=== PATIENT | female | born 1960 | race Hispanic/Latino ===

== ENCOUNTER 2019-02-26 11:43 | Emergency (ER) | payer MEDICARE ==
[~2019-02-26 11:43] MED LIST: NAPR-1023 PO; TRAM50TA4 PO
== END 2019-02-26 12:24 | disposition home or self-care (01) ==
LOC: EDH 11:43
DX: G89.29 Other chronic pain (principal); M54.5 Low back pain; M19.90 Unspecified osteoarthritis, unspecified site; Z88.8 Allergy status to other drugs, medicaments and biological substances; Z90.710 Acquired absence of both cervix and uterus; Z90.49 Acquired absence of other specified parts of digestive tract; Z98.890 Other specified postprocedural states
CPT/HCPCS: 99281

== ENCOUNTER 2022-03-29 23:19 | Emergency (ER) | payer MEDICARE, OTHER ==
[~2022-03-29] VITALS: Ht 154.9 cm; Wt 90.7 kg
[2022-03-30] MEDS ORDERED: DiphenhydrAMINE HCL 50 MG/ML VIAL IV ONE (00:30)
[2022-03-30] MEDS ORDERED: KETOROLAC 15MG/ML VIAL (15MG/ML) IV ONE (00:30)
[2022-03-30] MEDS ORDERED: ACETAMINOPHEN 500 MG TABLET PO ONE (00:30)
[2022-03-30] MEDS ORDERED: PROCHLORPERAZINE 10MG/2ML INJ IV ONE (00:30)
[2022-03-30] MEDS ORDERED: IBUP-2070 PO (00:48)
[2022-03-30] MEDS ORDERED: FIORIT PO (00:48)
[2022-03-30] MEDS ORDERED: D-ME118S47 PO (00:48)
[2022-03-30 01:18] VITALS: BP 135/82
== END 2022-03-30 01:20 | disposition home or self-care (01) ==
LOC: EDH 23:19
DX: U07.1 COVID-19 (principal); R51.9 Headache, unspecified; Z88.8 Allergy status to other drugs, medicaments and biological substances; Z79.899 Other long term (current) drug therapy; Z98.890 Other specified postprocedural states
CPT/HCPCS: 87635; 87804 ×2; 96374; 96375; 99284; C9803; J0780; J1200; J1885

== ENCOUNTER 2023-05-26 12:19 | Emergency (ER) | payer OTHER ==
[~2023-05-26] VITALS: Ht 154.9 cm; Wt 97.5 kg
[~2023-05-26 12:19] MED LIST changes: +D-ME118S47 PO; +FIORIT PO; +IBUP-2070 PO
[2023-05-26] MEDS ORDERED: LIDOCAINE HCL 1% 20 ML VIAL ONE (14:33)
[2023-05-26] MEDS ORDERED: CEPH500B PO (14:35)
[2023-05-26 15:31] VITALS: BP 138/74; PULSE 92; RESP 20; O2SAT 99
[2023-05-26] MEDS ORDERED: ACET-2079 PO (15:41)
[2023-05-26] MEDS ORDERED: TETANUS/DIPHTHERIA TOXOID [ADULT] 0.5 ML VIAL IM ONE ×2 (15:51→16:00)
== END 2023-05-26 16:02 | disposition home or self-care (01) ==
LOC: EDH 12:19
DX: L02.414 Cutaneous abscess of left upper limb (principal); Z90.49 Acquired absence of other specified parts of digestive tract
CPT/HCPCS: 10060; 90471; 90714

== ENCOUNTER → 2024-07-09 | Outpatient (CLI) | payer OTHER ==
[~2024-07-09] MED LIST changes: +ACET-2079 PO; +BROM118S48 PO; +CEPH500B PO; -D-ME118S47 PO
== END | disposition home or self-care (01) ==
LOC: RAH 09:11
PROVIDERS: ATTEND Surgery
DX: K57.30 Diverticulosis of large intestine without perforation or abscess without bleeding (principal); N20.0 Calculus of kidney; K43.9 Ventral hernia without obstruction or gangrene; R10.32 Left lower quadrant pain; Z90.49 Acquired absence of other specified parts of digestive tract
CPT/HCPCS: 74176

== ENCOUNTER 2024-11-02 06:45 | Day surgery (SDC) | payer OTHER ==
[2024-11-02] VITALS (10 sets, daily range): BP systolic 122–163; BP diastolic 61–82; PULSE 75–83; RESP 14–18; TEMP 97.4–98.5
[~2024-11-02] VITALS: Ht 154.9 cm; Wt 89.8 kg
[2024-11-02] MEDS: 0.9%NACL 1000ML 1,000 ML IV ONE (07:55)
[2024-11-02] MEDS ORDERED: proPOFol 10 MG/ML 20ML VIAL IV ONE (07:59)
[2024-11-02] MEDS ORDERED: GLYCOPYRROLATE 0.2 MG/ML 5 ML VIAL ONE (08:00)
--- NOTE | 2024-11-02 11:37 | OP ---
Operative Note: DATE OF PROCEDURE: 11/02/24 SURGEON: GEETA STEPHENS MD VARNISHER APPRENTICE: [] ANESTHESIA: [] MAC ANESTHESIOLOGIST/TANK SYSTEMS MAINTAINER: [] PREOPERATIVE DIAGNOSIS: [] GERD POSTOPERATIVE DIAGNOSIS: [] The same and mild gastritis SYNOPSIS: [] PROCEDURE: [] Upper endoscopy with biopsy ESTIMATED BLOOD LOSS: [] INDICATIONS: [] DESCRIPTION OF PROCEDURE: [] With the patient in conscious sedation I inserted the endoscope through the mouth. We advanced this to the esophagus was completely normal. Z-line was at 40 cm. We entered the stomach and insufflated with air I was able to visualize the pylorus and placed the endoscope through the second portion of the duodenum. There was normal anatomy and mild gastritis and I took a biopsy from the antrum. I retroflexed it and examined the body and fundus and there was no pathology. There was no hiatal hernia seen. Before retrieving the scope I suctioned all the fluid and air. Procedure was completed without any complication. GEETA STEPHENS MD Nov 02, 2024 11:37
== END 2024-11-02 11:05 | disposition home or self-care (01) ==
LOC: DAH 06:45 → ENDO 06:45
PROVIDERS: ATTEND Surgery
DX: K21.9 Gastro-esophageal reflux disease without esophagitis (principal); R10.10 Upper abdominal pain, unspecified; R10.30 Lower abdominal pain, unspecified; K29.50 Unspecified chronic gastritis without bleeding; K57.30 Diverticulosis of large intestine without perforation or abscess without bleeding; E66.9 Obesity, unspecified; Z86.0100 Personal history of colon polyps, unspecified; Z90.710 Acquired absence of both cervix and uterus; Z87.898 Personal history of other specified conditions; Z98.890 Other specified postprocedural states; Z68.37 Body mass index [BMI] 37.0-37.9, adult; Z79.899 Other long term (current) drug therapy
CPT/HCPCS: 88305; 88312; 43239; J7030 ×2; J2704; J3490; A4620; A4215 ×2; A4223; A4222; A4221; A4663; A4606

== ENCOUNTER 2025-05-28 17:44 | Emergency (ER) | payer OTHER ==
[~2025-05-28] VITALS: Ht 154.9 cm; Wt 93.9 kg
--- NOTE | 2025-05-28 18:19 | EKG ---
[facility] Test Date: 2025-05-28 Test Time: 18:14:45 Pat Name: KEDAR SHANKS Department: [facility] Room: Gender: F Cafe Manager: [id number] : 1960 Requested By: LALY ALLEN Order Number: [id number] Reading MD: Ronni Renteria Measurements Intervals [place] Rate: 85 P: 52 W[place]: 130 QRS: 32 QRSD: 82 T: 38 QT: 370 QTc: 441 Interpretive Statements Sinus rhythm Compared to ECG 02/12/2024 07:25:37 Sinus tachycardia no longer present Electronically Signed On 05-29-2025 12:07:33 CDT by Ronni Renteria Please click the below link to view image of tracing.
[2025-05-28 18:22] LABS: IMMATURE GRANULOCYTE ABSOLUTE 0.02 K/uL (0-1); NUCLEATED RED BLOOD CELLS 0.0 % (0.0-0.19); PLATELET COUNT (AUTO) 275 K/uL (130-400); RED BLOOD CELL COUNT(AUTO) 4.71 MIL/uL (4.00-5.50); RED CELL DISTRIBUTION WIDTH 12.7 % (11.0-15.5); WHITE BLOOD COUNT (AUTO) 8.0 K/uL (4.8-10.8)
[2025-05-28 18:28] LABS: CREATININE 0.8 mg/dL (0.5-1.0); GLOMERULAR FILTR. RATE CALC 82.0 mL/min (>90); GLUCOSE,RANDOM 116.0 mg/dL (70-105); SODIUM SERUM 136.0 mmol/L (136-145); UREA NITROGEN, BLOOD 13.0 mg/dL (7-18)
[2025-05-28] MEDS ORDERED: IOHEXOL-350 75 ML VIAL IV ONE (18:58)
--- NOTE | 2025-05-28 19:15 | ERN ---
ED Note History of Present Illness Stated Complaint: ABDOMINAL PAIN Chief Complaint: Abdominal Pain Time Seen by MD: 17:45 Time Seen by Midlevel: 17:45 Dictation: The patient is a 64-year-old female with a history of hysterectomy, cholecystectomy, abdominal hernia who presents to the emergency department with complaints of left lower abdominal pain at her hernia site onset two days ago. Patient reports some nausea but no vomiting. Denies any diarrhea or constipation. Reports last bowel movement today. Allergies: Coded Allergies: red dye (Unverified Allergy, Severe, RASH, 09/22/15) pravastatin (Unverified Allergy, Intermediate, HEAT WAVES, 09/22/15) Home Meds No Active Prescriptions or Reported Meds Past Medical History Past Medical History: No Pertinent History, Other Additional Past Medical Hx: HX OF BACK PAIN Surgical History: Hysterectomy, Cholecystectomy Surgical History Other: BACK SX Social History: Negative, Lives with family History: Not Applicable RN Note Reviewed/Agreed w/PFSH: Yes Review of System Dictation Constitutional: Negative for fever,chills, and weight loss Eyes: Negative for injury, pain,redness, and discharge ENT: Negative for injury,pain or swelling Cardiovascular: Negative for chest pain, palpitations, and edema Respiratory: Negative for shortness of breath, cough, and wheezing, Abdomen/GI: Negative for vomiting, diarrhea, and constipation positive for abdominal pain, nausea Back: Negative for injury and pain : Negative for injury, bleeding and discharge MS/Extremity: Negative for injury and deformity Skin: Negative for rash, and discoloration Neuro: Negative for headache, weakness, numbness, tingling, and seizure Psych: Negative for suicide ideation, homicidal ideation, and hallucinations Initial Vital Sign VS Vital Signs Date Time Temp Pulse Resp B/P (MAP) Pulse Ox O2 Delivery O2 Flow Rate FiO2 05/28/25 17:45 97.9 91 16 156/75 98 Room Air 05/28/25 19:40 0 21 Physical Exam Dictation Vital Signs reviewed General Appearance: Alert, oriented x 3, no acute distress, well developed, nourished. Head and Face: non-traumatic. Eyes: PERRL, pink conjunctivas, eyelid no trauma, anterior chamber with arcus senilis. Ears: Pinnas intact and no signs of trauma or erythema ear canals clear and no discharge TM no erythema Nose: No discharge, no bleeding. Oropharynx: Mouth normal, tongue pink. pharynx clear,no erythema, tonsils no exudates, no abscesses noted, mucous membrane moist Neck: Supple, non-tender, no thyromegaly, no masses, no JVD, no bruits Breast:Deferred Chest:No tenderness, no crepitus, no paradoxical movement, no retractions Lungs:Clear, well-ventilated, symmetric, no rales, no wheezing, no rhonchi, no stridor, good breath sounds bilaterally Heart: Regular rate, regular rhythm, no murmur, no gallops Vascular: no peripheral edema, Abdomen: Soft, positive bowel sounds, nondistended, no guarding, Tenderness to left lower quadrant, no rebound, no masses no hepatomegaly, no splenomegaly, no Enriquez's sign, no hernias. Rectal: Deferred Genital: Deferred Neurological: Normal speech, motor function intact, sensory function intact Musculoskeletal: Neck nontender, full range of motion, back nontender, full range of motion, Extremities: nontender, full range of motion Skin: Color pink, dry, no turgor, no rash, no lacerations, no abrasions, no contusions. Lymphatic: Deferred Results (Laboratory/Radiology) Laboratory/Radiology Laboratory Tests Test 05/28/25 18:14 05/28/25 19:33 White Blood Count 8.0 K/uL (4.8-10.8) Red Blood Count 4.71 MIL/uL (4.00-5.50) Hemoglobin 14.3 g/dL (12.0-16.0) Hematocrit 44.1 % (36-48) Mean Corpuscular Volume 93.6 fL (79-99) Mean Corpuscular Hemoglobin 30.4 pg (27.0-33.0) Mean Corpuscular Hemoglobin Concent 32.4 g/dL (32.0-36.0) Red Cell Distribution Width 12.7 % (11.0-15.5) Platelet Count 275 K/uL (130-400) Mean Platelet Volume 9.2 fL (7.5-10.5) Immature Granulocyte % (Auto) 0.3 % (0-1) Neutrophils (%) (Auto) 61.9 % (40.0-77.0) Lymphocytes (%) (Auto) 25.8 % (21.0-51.0) Monocytes (%) (Auto) 9.6 % (3.0-13.0) Eosinophils (%) (Auto) 2.1 % (0.0-8.0) Basophils (%) (Auto) 0.3 % (0.0-5.0) Neutrophils # (Auto) 5.0 K/uL (1.8-7.7) Lymphocytes # (Auto) 2.1 K/uL (1.0-4.8) Monocytes # (Auto) 0.8 K/uL (0.1-1.0) Eosinophils # (Auto) 0.17 K/uL (0.00-0.70) Basophils # (Auto) 0.02 K/uL (0.00-0.20) Absolute Immature Granulocyte (auto 0.02 K/uL (0-1) Nucleated Red Blood Cells 0.0 % (0.0-0.19) Sodium Level 136 mmol/L (136-145) Potassium Level 4.1 mmol/L (3.5-5.1) Chloride Level 103 mmol/L (101-111) Carbon Dioxide Level 27 mmol/L (21-32) Blood Urea Nitrogen 13 mg/dL (7-18) Creatinine 0.8 mg/dL (0.5-1.0) Glomerular Filtration Rate Calc 82 mL/min (>90) Random Glucose 116 mg/dL (70-105) H Total Calcium 9.3 mg/dL (8.5-10.1) Troponin I High Sensitivity < 4 ng/L (4-50) L Urine Color LIGHT-YELLOW (YELLOW) Urine Appearance CLEAR (CLEAR) Urine pH 5.5 (5.0-8.0) Urine Specific [place] 1.023 (1.001-1.031) Urine Protein NEGATIVE mg/dL (NEGATIVE) Urine Glucose (UA) NEGATIVE mg/dL (NEGATIVE) Urine Ketones NEGATIVE mg/dL (NEGATIVE) Urine Occult Blood NEGATIVE (NEGATIVE) Urine Nitrate NEGATIVE (NEGATIVE) Urine Bilirubin NEGATIVE mg/dL (NEGATIVE) Urine Urobilinogen 0.2 mg/dL (0.2-1.0) Urine Leukocyte Esterase NEGATIVE Freddy/uL PATIENT: KEDAR SHANKS MR#: [id number] : 1960 SEX: F AGE: 64 LOCATION: [facility] 05 STATUS: REG ER REPORT#: [id number] SERVICE 04 REASON: ABD PAIN, llq abd pain ORDERING PHYSICIAN: LALY ALLEN PROCEDURE: ABD PEL WO - CT ABDOMEN/PELVIS W/O CONTRAST EXAM: CT Abdomen and Pelvis without IV contrast. CLINICAL HISTORY: Pain. TECHNIQUE: Thin collimated axial CT images of the abdomen and pelvis were obtained, with sagittal and coronal reformatted images also submitted. A CT scan is done according to ALARA (As Low As Reasonably Achievable). CONTRAST: None. COMPARISON: Prior CT abdomen and pelvis dated 09 July 2024. FINDINGS: Unremarkable visualized lung parenchyma. Post cholecystectomy status. Mild fatty infiltration of the liver. No focal lesion in the liver. No evidence of dilatation of the intrahepatic biliary radicles. Nonobstructive 6 mm calculus in the right kidney lower pole calyx, and another punctate 2 calculus in the right kidney interpolar calyx. Punctate 4 mm calculus in the left kidney interpolar calyx. No focal abnormality within the pancreas, spleen, or adrenal glands. A large umbilical hernia measuring 7.8 x 4.6 x 10.9 cm containing a portion of the proximal ileal loops. Surgical anastomosis in the distal jejunal loop. No features of bowel obstruction. Moderate amount of fecal residue in the large bowel loops with scattered diverticulosis of the distal transverse, descending, and sigmoid colon without evidence of diverticulitis. No inflammatory bowel wall thickening. No features of bowel obstruction or ileus. The appendix is normal. There is no abnormality within the urinary bladder. Post-hysterectomy status. No adnexal mass. Abdominal and pelvic vessels were limited in evaluation due to a lack of intravenous contrast. No evidence of aneurysmal dilatation of the abdominal aorta. No lymphadenopathy. No free fluid. There is no acute osseous abnormality. Moderate degenerative changes in the sacroiliac, superolateral hip joint, and multilevel severe degenerative facet arthropathy in the lumbar spine. Prominent disc osteophyte complex bulge at the 5-S1 level. Multilevel severe degenerative facet arthropathy in the lumbar spine from L2-L3 through L5-S1. IMPRESSIONS: No acute process in the abdomen or pelvis. Nonobstructive bilateral renal calculi. Post cholecystectomy status. Mild fatty infiltration of the liver. A large umbilical hernia containing omental fat and a portion of the ileal loops. Surgical anastomosis in the distal jejunal loop. No features of bowel obstruction. Moderate amount of fecal residue in the large bowel loops with scattered colonic diverticulosis without evidence of diverticulitis. Compared to the prior study, there is an interval progression of the umbilical hernia. The remainder of the findings remain unchanged. /[facility] Reviewed?: Yes EKG: (+) rhythm (Sinus rhythm) EKG Comment: Date:05/28/2025 Time:1813 Ventricular rate:85 UT interval:130 QRS duration:82 QT/QTc:370/441 EKG interpretation: Sinus rhythm Reviewed by ED Attending no STEMI ED Course ED Course Orders Procedure Category Date Status Time Cbc With Differential LAB 05/28/25 Complete 17:55 Troponin I High LAB 05/28/25 Complete Sensitivity 17:55 Urinalysis Profile LAB 05/28/25 Complete 17:55 12 Lead Ekg Tracing- EKG 05/28/25 Complete Technical 17:55 Morphine 4mg Syg PHA 05/28/25 Complete (Morphine 4mg Syg) 18:00 Ondansetron 4mg Inj PHA 05/28/25 Complete (Zofran 4mg Inj) 18:00 Basic Metabolic Panel LAB 05/28/25 Complete 17:55 Iohexol (Omnipaque) PHA 05/28/25 Complete 18:58 Ct Abdomen/Pelvis W/O CT 05/28/25 Resulted Contrast 19:05 Ketorolac PHA 05/28/25 Complete Tromethamine 15mg/Ml 19:30 Current Medications Medications (Trade) Dose Ordered Sig/Satinder Route PRN Reason Start Time Stop Time Status Last Admin Dose Admin Iohexol (Omnipaque) 75 ml STK-MED ONCE IV 05/28/25 18:58 05/28/25 19:03 DC Ketorolac Tromethamine (toRADol) 15 mg ONCE ONCE IV 05/28/25 19:30 05/28/25 19:33 DC 05/28/25 19:42 Morphine Sulfate (morPHINE 4MG SYG) 4 mg ONCE ONCE IVP 05/28/25 18:00 05/28/25 19:29 DC Ondansetron HCl (zoFRAN 4MG INJ) 4 mg ONCE ONCE IVP 05/28/25 18:00 05/28/25 18:01 DC Vital Signs Date Time Temp Pulse Resp B/P (MAP) Pulse Ox O2 Delivery O2 Flow Rate FiO2 05/28/25 21:30 85 16 168/88 98 Room Air* 0 05/28/25 19:40 98.4 82 16 163/72 98 Room Air* 0 21 05/28/25 17:45 97.9 91 16 156/75 98 Room Air Medical Decision Making MDM The patient is a 64-year-old female with a history of hysterectomy, cholecystectomy, abdominal hernia who presents to the emergency department with complaints of left lower abdominal pain at her hernia site onset two days ago. Patient reports some nausea but no vomiting. Denies any diarrhea or constipation. Reports last bowel movement today. CBC showed no leukocytosis, no anemia, chemistry showed no electrolyte imbalance, negative troponin. Urinalysis unremarkable. CT showed No acute process in the abdomen or pelvis. Nonobstructive bilateral renal calculi. Large umbilical hernia with no features of obstruction. On physical exam patie nt is in no acute distress, nontoxic appearance. Stable vital signs. Patient's pain improved with medication. Patient will be discharged to follow up with her PCP. Discharge delay due to pending for CT to be read Differential diagnosis: Abdominal hernia, gastroenteritis, gastritis, bowel obstruction Need for hospitalization: Patient does not meet criteria for hospitalization. There are no social concerns with this patient. DX & DISP Disposition: Discharge Departure Impression: Primary Impression: Umbilical hernia Additional Impression: Abdominal pain Condition: Stable Scripts No Active Prescriptions or Reported Meds Additional Instructions: Your labs were unremarkable. Your CT showed a your abdominal hernia but no signs of obstruction. You need to follow up with your primary doctor . If anything worsens please return to ER. FOLLOW-UP WITH PRIMARY CARE PROVIDER IN 1 TO 2 DAYS. TAKE MEDICATIONS DIRECTED HERE IN THE EMERGENCY ROOM. OKAY TO CONTINUE HOME MEDICATIONS UNLESS OTHERWISE DISCUSSED DURING YOUR VISIT IN THE EMERGENCY ROOM TODAY. RETURN TO YOUR NEAREST EMERGENCY ROOM IF SYMPTOMS WORSEN OR IF THERE IS NO IMPROVEMENT. CALL 911 IF YOU NEED IMMEDIATE ASSISTANCE. TAKE TYLENOL [id number] NEEDED AND IF NO CONTRAINDICATIONS ARE PRESENT. INCREASE ORAL HYDRATION. A WOUND CULTURE OR URINE CULTURE WAS ORDERED HERE IN THE EMERGENCY ROOM DEPARTMENT PLEASE FOLLOW-UP WITH PRIMARY CARE PROVIDER AND ADVISE THEM TO GET REPEAT PORTS FROM OUR FACILITY. IF YOU HAD ANY GAEL WRAP/SPLINTS THAT WERE APPLIED HERE, PLEASE DO NOT REMOVE THEM UNTIL YOU SEE YOUR PRIMARY CARE OR SPECIALTY. Referrals: ASIA PINA MD (PCP) Time of Disposition: 22:22 I have reviewed the case, and I agree with, Diagnosis and Plan LALY ALLEN [facility] May 28, 2025 19:15
--- NOTE | 2025-05-28 19:19 | NUR ---
PT CARE ASSUMED AT THIS TIME
[2025-05-28 19:51] LABS: APPEARANCE,URINE CLEAR (CLEAR); GLUCOSE, URINE (UA) NEGATIVE (NEGATIVE); LEUKOCYTE ESTERASE ,URINE NEGATIVE Leu/uL (NEGATIVE); NITRATE,URINE NEGATIVE (NEGATIVE); OCCULT BLOOD,URINE NEGATIVE (NEGATIVE)
[2025-05-28 19:52] LABS: ADD UA MICROSCOPIC NO
--- NOTE | 2025-05-28 22:15 | HMCIMG ---
EXAM: CT Abdomen and Pelvis without IV contrast. CLINICAL HISTORY: Pain. TECHNIQUE: Thin collimated axial CT images of the abdomen and pelvis were obtained, with sagittal and coronal reformatted images also submitted. A CT scan is done according to ALARA (As Low As Reasonably Achievable). CONTRAST: None. COMPARISON: Prior CT abdomen and pelvis dated 09 July 2024. FINDINGS: Unremarkable visualized lung parenchyma. Post cholecystectomy status. Mild fatty infiltration of the liver. No focal lesion in the liver. No evidence of dilatation of the intrahepatic biliary radicles. Nonobstructive 6 mm calculus in the right kidney lower pole calyx, and another punctate 2 calculus in the right kidney interpolar calyx. Punctate 4 mm calculus in the left kidney interpolar calyx. No focal abnormality within the pancreas, spleen, or adrenal glands. A large umbilical hernia measuring 7.8 x 4.6 x 10.9 cm containing a portion of the proximal ileal loops. Surgical anastomosis in the distal jejunal loop. No features of bowel obstruction. Moderate amount of fecal residue in the large bowel loops with scattered diverticulosis of the distal transverse, descending, and sigmoid colon without evidence of diverticulitis. No inflammatory bowel wall thickening. No features of bowel obstruction or ileus. The appendix is normal. There is no abnormality within the urinary bladder. Post-hysterectomy status. No adnexal mass. Abdominal and pelvic vessels were limited in evaluation due to a lack of intravenous contrast. No evidence of aneurysmal dilatation of the abdominal aorta. No lymphadenopathy. No free fluid. There is no acute osseous abnormality. Moderate degenerative changes in the sacroiliac, superolateral hip joint, and multilevel severe degenerative facet arthropathy in the lumbar spine. Prominent disc osteophyte complex bulge at the 5-S1 level. Multilevel severe degenerative facet arthropathy in the lumbar spine from L2-L3 through L5-S1. IMPRESSIONS: No acute process in the abdomen or pelvis. Nonobstructive bilateral renal calculi. Post cholecystectomy status. Mild fatty infiltration of the liver. A large umbilical hernia containing omental fat and a portion of the ileal loops. Surgical anastomosis in the distal jejunal loop. No features of bowel obstruction. Moderate amount of fecal residue in the large bowel loops with scattered colonic diverticulosis without evidence of diverticulitis. Compared to the prior study, there is an interval progression of the umbilical hernia. The remainder of the findings remain unchanged. /[place]
[2025-05-28 22:33] VITALS: BP 152/74; PULSE 79; RESP 15; TEMP 98.2; O2SAT 98
== END 2025-05-28 22:42 | disposition home or self-care (01) ==
LOC: EDH 17:44
DX: K42.9 Umbilical hernia without obstruction or gangrene (principal); R10.32 Left lower quadrant pain; Z90.710 Acquired absence of both cervix and uterus; Z90.49 Acquired absence of other specified parts of digestive tract; Z88.8 Allergy status to other drugs, medicaments and biological substances
CPT/HCPCS: 99285; 74176; 96374; 84484; 80048; 85025; 81003; 36415; 93005; J1885; J2405; Q9967